=== PATIENT | female | born 1965 | race African-American/Black ===

== ENCOUNTER 2016-05-30 09:24 | Emergency (ER) | payer OTHER ==
[~2016-05-30] VITALS: Ht 154.9 cm; Wt 89.2 kg
[~2016-05-30 09:24] MED LIST: AMBIEN10 MG PO; BUPRENORPHIN-N1 EACH SL; CIPRO500 MG PO; EFFEXOR XR75 MG PO; FLAGYL500 MG PO; HYDRALAZINE HCL25 MG PO; LAMICTAL25 MG PO; LAMOTRIGINE100 MG PO; LATUDA120 MG PO; LATUDA80 MG PO; MINIPRESS1 MG PO; MINIPRESS5 MG PO; PERCOCET 5/31 TABLET PO; PRAZOSIN HCL5 MG PO; QUETIAPINE FUM300 MG PO; RISPERDAL4 MG PO; SEROQUEL100 MG PO; SUBOXONE 8 MG-1 EAC2 SL; TOPIRAMATE100 MG PO; TOPROL XL100 MG PO; ZOLPIDEM TARTRA10 MG PO; ZOLPIDEM TARTRAT5 MG PO; ZUBSOLV 5.7-1.1 EACH SL
[2016-05-30] MEDS ORDERED: NAPROSYN500 MG PO (13:38)
[2016-05-30 13:44] VITALS: BP 142/96
== END 2016-05-30 13:44 | disposition home or self-care (01) ==
LOC: EME 09:24
DX: K59.00 Constipation, unspecified (principal); K57.90 Diverticulosis of intestine, part unspecified, without perforation or abscess without bleeding; J45.909 Unspecified asthma, uncomplicated; I10 Essential (primary) hypertension; F17.200 Nicotine dependence, unspecified, uncomplicated
CPT/HCPCS: 74020; 74176; 81003; 99281; 99284; J1885

== ENCOUNTER → 2016-08-24 | Outpatient (CLI) | payer OTHER ==
[~2016-08-24] MED LIST changes: +NAPROSYN500 MG PO
== END | disposition home or self-care (01) ==
LOC: CDC 11:44
DX: R94.31 Abnormal electrocardiogram [ECG] [EKG] (principal); G56.02 Carpal tunnel syndrome, left upper limb; M79.642 Pain in left hand; M65.312 Trigger thumb, left thumb; M65.322 Trigger finger, left index finger; M65.332 Trigger finger, left middle finger; M65.342 Trigger finger, left ring finger
CPT/HCPCS: 93000

== ENCOUNTER 2016-12-13 06:22 | Emergency (ER) | payer OTHER ==
[~2016-12-13] VITALS: Ht 154.9 cm; Wt 95.7 kg
[2016-12-13] MEDS ORDERED: PREDNISONE50 MG PO (07:58)
[2016-12-13 08:27] VITALS: BP 119/80
== END 2016-12-13 08:28 | disposition home or self-care (01) ==
LOC: EME 06:22
DX: M54.16 Radiculopathy, lumbar region (principal); I10 Essential (primary) hypertension; J45.909 Unspecified asthma, uncomplicated; F32.9 Major depressive disorder, single episode, unspecified; Z88.0 Allergy status to penicillin
CPT/HCPCS: 99281; 99284

== ENCOUNTER 2017-10-08 02:29 | Emergency (ER) | payer OTHER ==
[~2017-10-08] VITALS: Ht 167.6 cm; Wt 89.4 kg
[~2017-10-08 02:29] MED LIST changes: +PREDNISONE50 MG PO
[2017-10-08 03:21] LABS: BASOPHIL (%) 0.2 % (0-1); EOSINOPHIL (%) 0 % (0-5); HEMATOCRIT 39.2 % (36.0-46.0); HEMOGLOBIN 12.8 G/DL (11.9-15.5); IMMATURE GRANULOCYTE (%) 0.8 % (0.0-0.7); LYMPHOCYTE (%) 6.6 % (15-42); LYMPHOCYTE COUNT 1.1 K/uL (1.0-2.8); MCH 22.5 PG (29.0-34.0); MCHC 32.7 G/DL (30.0-36.0); MCV 68.9 FL (83-99); MONOCYTE (%) 2.3 % (3-12); MONOCYTE COUNT 0.4 K/uL (0-0.8); NEUTROPHIL (%) 90.1 % (45-76); NEUTROPHIL COUNT 15.4 K/uL (1.8-6.4); PLATELET COUNT 324 K/uL (156-360); RBC DIS.WIDTH-CV 17.1 % (11.8-14.6); RED BLOOD COUNT 5.69 M/uL (3.80-5.20); WHITE BLOOD COUNT 17.1 K/uL (4.1-10.2)
[2017-10-08 03:25] LABS: ALBUMIN 4.7 g/dL (3.2-4.8); CHLORIDE 109 mEq/L (99-109); POTASSIUM 3.8 mEq/L (3.7-5.4); SODIUM 144 mEq/L (136-147)
[2017-10-08 03:28] LABS: GLUCOSE 149 mg/dL (70-99); TOTAL PROTEIN 7.8 g/dL (6.4-8.3)
[2017-10-08 03:30] LABS: TOTAL BILIRUBIN 0.5 mg/dL (0.0-1.0)
[2017-10-08 03:31] LABS: ALKALINE PHOSPHATASE 100 IU/L (3-129); GFR ESTIMATE (CALCULATED) > 59 mL/min/
[2017-10-08 03:32] LABS: UREA NITROGEN (BUN) 17 mg/dL (9-23)
[2017-10-08 03:33] LABS: AST (GOT) 14 IU/L (2-34)
[2017-10-08 03:34] LABS: ALT (GPT) 18 IU/L (3-49)
[2017-10-08 03:35] LABS: CREATINE KINASE 136 IU/L (1-294); LIPASE 7 U/L (1.0-51.0)
[2017-10-08 03:37] LABS: TROP-I INTERPRETATION NEGATIVE; TROPONIN-I < 0.01 ng/mL (0.0-0.30)
[2017-10-08 06:10] LABS: TROP-I INTERPRETATION NEGATIVE; TROPONIN-I < 0.01 ng/mL (0.0-0.30)
[2017-10-08] MEDS ORDERED: PANTOPRAZOLE SO40 MG PO (06:51)
[2017-10-08] MEDS ORDERED: CARAFATE100 MG/ML PO (06:51)
[2017-10-08 06:55] VITALS: BP 169/101
[2017-10-09] MEDS ORDERED: SEROQUEL400 MG PO (18:24)
== END 2017-10-08 06:55 | disposition home or self-care (01) ==
LOC: EME → EDBD 02:29 → EME 02:29
PROVIDERS: Emergency Medicine
DX: R10.13 Epigastric pain (principal); I10 Essential (primary) hypertension; J45.909 Unspecified asthma, uncomplicated; F32.9 Major depressive disorder, single episode, unspecified; F17.200 Nicotine dependence, unspecified, uncomplicated; F43.10 Post-traumatic stress disorder, unspecified; Z88.0 Allergy status to penicillin
CPT/HCPCS: 71045; 74177; 80053; 82550; 83690; 84484; 85025; 93005; 99281; 99284; J0780; J1630; J2405; J3010

== ENCOUNTER 2017-10-09 13:38 | Inpatient (IN) | payer OTHER ==
[~2017-10-09] VITALS: Ht 154.9 cm; Wt 83.0 kg
[~2017-10-09 13:38] MED LIST changes: +CARAFATE100 MG/ML PO; +PANTOPRAZOLE SO40 MG PO
[2017-10-09 15:11] LABS: BILIRUBIN NEGATIVE; BLOOD NEGATIVE; COLOR YELLOW ((YELLOW)); GLUCOSE (STRIP) NEGATIVE; KETONES 5; LEUKOCYTES TRACE; NITRITE NEGATIVE; PROTEIN (STRIP) 100; SPECIFIC GRAVITY 1.032 (1.000-1.030); UROBILINOGEN 0.2 MG/DL (0.2-1.0)
[2017-10-09 15:12] LABS: APPEARANCE SL.HAZY ((CLEAR))
[2017-10-09 15:15] LABS: BACTERIA RARE /HPF; EPITHELIAL CELLS 1+ /HPF; MUCUS 1+ /LPF; RED BLOOD CELLS 0-5 /HPF (0-5)
[2017-10-09 15:21] LABS: AMPHETAMINE NEGATIVE (500 ng/mL); BARBITURATES NEGATIVE (200 ng/mL); BENZODIAZEPINES PRESUMPTIVE POSITIVE (150 ng/mL); BUPRENORPHINE NEGATIVE (10 ng/mL); COCAINE NEGATIVE (150 ng/mL); METHADONE NEGATIVE (200 ng/mL); METHAMPHETAMINE NEGATIVE (500 ng/mL); OPIATES (MORPHINE) NEGATIVE (100 ng/mL); OXYCODONE NEGATIVE (100 ng/mL); PHENCYCLIDINE PRESUMPTIVE POSITIVE (25 ng/mL); PROPOXYPHENE NEGATIVE (300 ng/mL); THC CANNABINOIDS PRESUMPTIVE POSITIVE (50 ng/mL); TRICYCLIC ANTIDEPRESSANTS PRESUMPTIVE POSITIVE (300 ng/mL)
[2017-10-09 15:42] LABS: ALBUMIN 4.9 g/dL (3.2-4.8); CHLORIDE 104 mEq/L (99-109)
[2017-10-09 15:43] LABS: POTASSIUM 3.6 mEq/L (3.7-5.4); SODIUM 138 mEq/L (136-147)
[2017-10-09 15:45] LABS: GLUCOSE 115 mg/dL (70-99); TOTAL PROTEIN 8.1 g/dL (6.4-8.3)
[2017-10-09 15:48] LABS: ALKALINE PHOSPHATASE 95 IU/L (3-129); HEMATOCRIT 40.3 % (36.0-46.0); HEMOGLOBIN 13.3 G/DL (11.9-15.5); MCH 22.6 PG (29.0-34.0); MCV 68.4 FL (83-99); RBC DIS.WIDTH-CV 17.6 % (11.8-14.6); RBC DIS.WIDTH-SD 39.3 % (39-53); RED BLOOD COUNT 5.89 M/uL (3.80-5.20); SERUM ETHYL ALCOHOL < 10 mg/dL; WHITE BLOOD COUNT 18.3 K/uL (4.1-10.2)
[2017-10-09 15:49] LABS: CREATININE 0.9 mg/dL (0.6-1.3); GFR ESTIMATE (CALCULATED) > 59 mL/min/
[2017-10-09 15:50] LABS: AST (GOT) 17 IU/L (2-34); UREA NITROGEN (BUN) 25 mg/dL (9-23)
[2017-10-09 15:51] LABS: ALT (GPT) 18 IU/L (3-49)
[2017-10-09 15:56] LABS: BENZODIAZEPINES, URINE SCREEN Negative (200 ng/mL)
[2017-10-09 15:57] LABS: QUANTITATIVE HCG < 4.0 MIU/ML
[2017-10-09 15:58] LABS: TOTAL BILIRUBIN 0.7 mg/dL (0.0-1.0)
[2017-10-09 16:35] LABS: PLAT.SUFFICIENCY ADEQUATE; PLATELET COUNT 318 K/uL (156-360)
[2017-10-09 18:15] VITALS: BP 187/112
[2017-10-09] MEDS ORDERED: SEROQUEL400 MG PO (18:24)
[2017-10-09 18:27] VITALS: BP 187/112
[2017-10-10 03:23] VITALS: BP 134/75
[2017-10-10 08:00] VITALS: BP 152/93
[2017-10-10 14:01] LABS: HEMOGLOBIN 13.8 G/DL (11.9-15.5); MCHC 32.1 G/DL (30.0-36.0); MCV 68.6 FL (83-99); PLATELET COUNT 329 K/uL (156-360); RBC DIS.WIDTH-CV 17.8 % (11.8-14.6); RBC DIS.WIDTH-SD 39.4 % (39-53); RED BLOOD COUNT 6.27 M/uL (3.80-5.20); WHITE BLOOD COUNT 14.7 K/uL (4.1-10.2)
[2017-10-10 14:16] LABS: ALBUMIN 4.6 G/DL (3.2-4.8); ALKALINE PHOSPHATASE 91 IU/L (3-129); ALT (GPT) 19 IU/L (3-49); AST (GOT) 27 IU/L (2-34); CHLORIDE 103 MEQ/L (99-109); CREATININE 0.9 MG/DL (0.6-1.3); DIRECT BILIRUBIN 0.2 mg/dL (0.0-0.3); GFR ESTIMATE (CALCULATED) > 59 mL/min/; GLUCOSE 95 mg/dL (70-99); LIPASE 14 U/L (1.0-51.0); POTASSIUM 3.9 MEQ/L (3.7-5.4); SODIUM 138 MEQ/L (136-147); TOTAL BILIRUBIN 0.8 MG/DL (0.0-1.0); TOTAL PROTEIN 7.4 G/DL (6.4-8.3); UREA NITROGEN (BUN) 23 mg/dL (9-23)
[2017-10-10 16:56] VITALS: BP 190/99
[2017-10-11 01:42] VITALS: BP 112/55
[2017-10-11 07:28] LABS: HEMATOCRIT 41.6 % (36.0-46.0); HEMOGLOBIN 13.2 G/DL (11.9-15.5); MCHC 31.7 G/DL (30.0-36.0); MCV 69.3 FL (83-99); PLATELET COUNT 310 K/uL (156-360); RBC DIS.WIDTH-CV 17.9 % (11.8-14.6); RBC DIS.WIDTH-SD 39.8 % (39-53); WHITE BLOOD COUNT 11.7 K/uL (4.1-10.2)
[2017-10-11 07:42] LABS: CHLORIDE 103 MEQ/L (99-109); GFR ESTIMATE (CALCULATED) > 59 mL/min/; GLUCOSE 108 mg/dL (70-99); POTASSIUM 3.9 MEQ/L (3.7-5.4); SODIUM 138 MEQ/L (136-147); UREA NITROGEN (BUN) 29 mg/dL (9-23)
[2017-10-11 08:32] VITALS: BP 118/82
[2017-10-11] MEDS ORDERED: APRESOLINE10 MG PO (15:05)
== END 2017-10-11 16:04 | disposition home or self-care (01) | DRG 885 ==
LOC: EME 13:38 → 1WEST 15:41 → EDOF 15:41 → ENRESERV 18:06 → 1WEST 18:07
PROVIDERS: Emergency Medicine; Physician Assistant
DX: F31.9 Bipolar disorder, unspecified (principal); R45.851 Suicidal ideations; F11.20 Opioid dependence, uncomplicated; F15.90 Other stimulant use, unspecified, uncomplicated; F12.90 Cannabis use, unspecified, uncomplicated; D72.829 Elevated white blood cell count, unspecified; E87.6 Hypokalemia; R10.11 Right upper quadrant pain; K20.9 Esophagitis, unspecified; I10 Essential (primary) hypertension; F43.10 Post-traumatic stress disorder, unspecified; F17.210 Nicotine dependence, cigarettes, uncomplicated; Z62.810 Personal history of physical and sexual abuse in childhood; Z87.11 Personal history of peptic ulcer disease
CPT/HCPCS: 76705; 80048; 80053; 80076; 81003; 82272; 83690; 84702; 84999; 85027; 90839; 99281; 99284; G0480; J2250; J2405; J3010; Q0177

== ENCOUNTER → 2017-10-11 | Outpatient (CLI) | payer OTHER ==
[~2017-10-11] MED LIST changes: +APRESOLINE10 MG PO; +COLACE100 MG PO; +MIRALAX255 GM PO; +PEPCID20 MG PO; +SEROQUEL400 MG PO
== END | disposition home or self-care (01) ==
LOC: AMB 16:37
PROC: 0DB68ZX Excision of Stomach, Via Natural or Artificial Opening Endoscopic, Diagnostic (ICD-10-PCS; principal; 2017-10-11)
DX: K25.9 Gastric ulcer, unspecified as acute or chronic, without hemorrhage or perforation (principal); Z87.11 Personal history of peptic ulcer disease; F31.9 Bipolar disorder, unspecified; F19.10 Other psychoactive substance abuse, uncomplicated
CPT/HCPCS: 88305; 88342 TC; J0360

== ENCOUNTER 2017-10-13 04:31 | Emergency (ER) | payer OTHER ==
[~2017-10-13] VITALS: Ht 157.5 cm; Wt 84.9 kg
[~2017-10-13 04:31] MED LIST changes: -COLACE100 MG PO; -MIRALAX255 GM PO; -PEPCID20 MG PO
[2017-10-13 06:04] LABS: ALBUMIN 4.7 g/dL (3.2-4.8); CHLORIDE 102 mEq/L (99-109); HEMATOCRIT 39.2 % (36.0-46.0); MCH 22.6 PG (29.0-34.0); MCHC 33.2 G/DL (30.0-36.0); MCV 68.3 FL (83-99); POTASSIUM 3.3 mEq/L (3.7-5.4); RBC DIS.WIDTH-CV 17.1 % (11.8-14.6); RBC DIS.WIDTH-SD 38.8 % (39-53); RED BLOOD COUNT 5.74 M/uL (3.80-5.20); SODIUM 135 mEq/L (136-147); WHITE BLOOD COUNT 10.8 K/uL (4.1-10.2)
[2017-10-13 06:07] LABS: GLUCOSE 108 mg/dL (70-99); TOTAL PROTEIN 7.6 g/dL (6.4-8.3)
[2017-10-13 06:09] LABS: TOTAL BILIRUBIN 0.7 mg/dL (0.0-1.0)
[2017-10-13 06:10] LABS: ALKALINE PHOSPHATASE 86 IU/L (3-129); CREATININE 1.1 mg/dL (0.6-1.3); GFR ESTIMATE (CALCULATED) > 59 mL/min/
[2017-10-13 06:11] LABS: UREA NITROGEN (BUN) 13 mg/dL (9-23)
[2017-10-13 06:13] LABS: ALT (GPT) 48 IU/L (3-49); AST (GOT) 31 IU/L (2-34)
[2017-10-13 06:14] LABS: LIPASE 16 U/L (1.0-51.0)
[2017-10-13 06:45] LABS: PLAT.SUFFICIENCY ADEQUATE; PLATELET COUNT 308 K/uL (156-360)
[2017-10-13 07:33] LABS: APPEARANCE CLEAR ((CLEAR)); BILIRUBIN NEGATIVE; BLOOD NEGATIVE; COLOR YELLOW ((YELLOW)); GLUCOSE (STRIP) NEGATIVE; KETONES NEGATIVE; LEUKOCYTES NEGATIVE; NITRITE NEGATIVE; PROTEIN (STRIP) NEGATIVE; SPECIFIC GRAVITY 1.014 (1.000-1.030); UCUL ADDED? NO; UROBILINOGEN 0.2 MG/DL (0.2-1.0)
[2017-10-13] MEDS ORDERED: COLACE100 MG PO (09:28)
[2017-10-13] MEDS ORDERED: MIRALAX255 GM PO (09:28)
[2017-10-13 09:46] VITALS: BP 163/107
== END 2017-10-13 10:01 | disposition home or self-care (01) ==
LOC: EME → EDBD 04:31 → EME 10:01
PROVIDERS: Emergency Medicine
DX: R10.30 Lower abdominal pain, unspecified (principal); K59.00 Constipation, unspecified; D72.829 Elevated white blood cell count, unspecified; I10 Essential (primary) hypertension; J45.909 Unspecified asthma, uncomplicated; F17.200 Nicotine dependence, unspecified, uncomplicated; F43.10 Post-traumatic stress disorder, unspecified; F31.9 Bipolar disorder, unspecified; Z87.19 Personal history of other diseases of the digestive system; Z88.0 Allergy status to penicillin
CPT/HCPCS: 74022; 80053; 81003; 81025; 83690; 85027; 99281; 99285; J7030

== ENCOUNTER 2017-10-16 05:25 | Emergency (ER) | payer OTHER ==
[~2017-10-16] VITALS: Ht 157.5 cm; Wt 86.3 kg
[~2017-10-16 05:25] MED LIST changes: +COLACE100 MG PO; +MIRALAX255 GM PO
[2017-10-16 07:23] LABS: HEMATOCRIT 38.6 % (36.0-46.0); HEMOGLOBIN 12.7 G/DL (11.9-15.5); MCH 22.8 PG (29.0-34.0); MCHC 32.9 G/DL (30.0-36.0); MCV 69.4 FL (83-99); RBC DIS.WIDTH-SD 40.5 % (39-53); RED BLOOD COUNT 5.56 M/uL (3.80-5.20); WHITE BLOOD COUNT 13.2 K/uL (4.1-10.2)
[2017-10-16 08:03] LABS: PLAT.SUFFICIENCY INCREASED; PLATELET COUNT 325 K/uL (156-360)
[2017-10-16 08:17] LABS: ALBUMIN 4.5 G/DL (3.2-4.8); ALKALINE PHOSPHATASE 79 IU/L (3-129); ALT (GPT) 31 IU/L (3-49); AST (GOT) 19 IU/L (2-34); CHLORIDE 105 MEQ/L (99-109); GFR ESTIMATE (CALCULATED) > 59 mL/min/; GLUCOSE 113 mg/dL (70-99); LIPASE 22 U/L (1.0-51.0); POTASSIUM 3.3 MEQ/L (3.7-5.4); SODIUM 141 MEQ/L (136-147); TOTAL PROTEIN 7.2 G/DL (6.4-8.3)
[2017-10-16 08:23] LABS: TOTAL BILIRUBIN 0.4 MG/DL (0.0-1.0); UREA NITROGEN (BUN) 22 mg/dL (9-23)
[2017-10-16 08:55] LABS: QUANTITATIVE HCG < 4.0 MIU/ML
[2017-10-16] MEDS ORDERED: PEPCID20 MG PO (09:58)
[2017-10-16 10:25] VITALS: BP 93/73
== END 2017-10-16 10:25 | disposition home or self-care (01) ==
LOC: EME → EDBD 05:25 → EME 10:25
DX: K29.70 Gastritis, unspecified, without bleeding (principal); K42.9 Umbilical hernia without obstruction or gangrene; K44.9 Diaphragmatic hernia without obstruction or gangrene; I10 Essential (primary) hypertension; J45.909 Unspecified asthma, uncomplicated; F43.10 Post-traumatic stress disorder, unspecified; F31.9 Bipolar disorder, unspecified; F17.200 Nicotine dependence, unspecified, uncomplicated; Z87.19 Personal history of other diseases of the digestive system; Z88.0 Allergy status to penicillin
CPT/HCPCS: 74176; 80053; 81003; 83690; 84702; 85027; 99281; 99285; J2405; J3010; J7030

== ENCOUNTER 2017-12-05 23:07 | Inpatient (IN) | payer OTHER ==
[~2017-12-05] VITALS: Ht 154.9 cm; Wt 81.2 kg
[~2017-12-05 23:07] MED LIST changes: +PEPCID20 MG PO
[2017-12-06 00:50] LABS: HEMATOCRIT 36.5 % (36.0-46.0); HEMOGLOBIN 11.9 G/DL (11.9-15.5); MCH 22.8 PG (29.0-34.0); MCHC 32.6 G/DL (30.0-36.0); MCV 70.1 FL (83-99); PLATELET COUNT 396 K/uL (156-360); RBC DIS.WIDTH-CV 17.2 % (11.8-14.6); RBC DIS.WIDTH-SD 42.3 % (39-53); RED BLOOD COUNT 5.21 M/uL (3.80-5.20); WHITE BLOOD COUNT 10.3 K/uL (4.1-10.2)
[2017-12-06 00:56] LABS: CHLORIDE 104 mEq/L (99-109); POTASSIUM 3.3 mEq/L (3.7-5.4); SODIUM 138 mEq/L (136-147)
[2017-12-06 00:58] LABS: GLUCOSE 110 mg/dL (70-99)
[2017-12-06 01:01] LABS: CREATININE 0.9 mg/dL (0.6-1.3); GFR ESTIMATE (CALCULATED) > 59 mL/min/; SERUM ETHYL ALCOHOL < 10 mg/dL
[2017-12-06 01:02] LABS: UREA NITROGEN (BUN) 13 mg/dL (9-23)
[2017-12-06 02:19] LABS: AMPHETAMINE NEGATIVE (500 ng/mL); BARBITURATES NEGATIVE (200 ng/mL); BENZODIAZEPINES NEGATIVE (150 ng/mL); BUPRENORPHINE NEGATIVE (10 ng/mL); COCAINE PRESUMPTIVE POSITIVE (150 ng/mL); METHADONE NEGATIVE (200 ng/mL); METHAMPHETAMINE NEGATIVE (500 ng/mL); OPIATES (MORPHINE) NEGATIVE (100 ng/mL); OXYCODONE NEGATIVE (100 ng/mL); PHENCYCLIDINE NEGATIVE (25 ng/mL); PROPOXYPHENE NEGATIVE (300 ng/mL); THC CANNABINOIDS NEGATIVE (50 ng/mL); TRICYCLIC ANTIDEPRESSANTS NEGATIVE (300 ng/mL)
[2017-12-06 03:34] VITALS: BP 109/57
[2017-12-06 07:24] VITALS: BP 114/62
[2017-12-06] MEDS ORDERED: TRIAMTERENE-HC1 EAC1 PO (09:47)
[2017-12-06 16:18] VITALS: BP 105/58
[2017-12-07 07:39] VITALS: BP 101/59
[2017-12-07 15:51] VITALS: BP 111/63
[2017-12-08 09:01] VITALS: BP 112/60
[2017-12-08 14:51] VITALS: BP 139/82
[2017-12-09 07:27] VITALS: BP 130/68
[2017-12-09 15:06] VITALS: BP 143/76
[2017-12-10 07:59] VITALS: BP 111/59
[2017-12-10] MEDS ORDERED: MINIPRESS5 MG PO (08:31)
[2017-12-10] MEDS ORDERED: EFFEXOR XR150 MG PO (08:31)
[2017-12-10] MEDS ORDERED: LAMOTRIGINE100 MG PO (08:31)
[2017-12-10] MEDS ORDERED: SEROQUEL400 MG PO (08:33)
[2017-12-10] MEDS ORDERED: QUETIAPINE FUMA25 MG PO (08:33)
[2017-12-10] MEDS ORDERED: ZOLPIDEM TARTRAT5 MG PO (08:33)
[2017-12-10] MEDS ORDERED: ERYTHROMYC1 APPLICAT RIGHT EYE (08:34)
== END 2017-12-10 09:52 | disposition home or self-care (01) | DRG 897 ==
LOC: EME 23:07 → 1WEST 12-06 01:29 → EDOF 12-06 01:29 → ENRESERV 12-06 03:03 → 1WEST 12-06 03:25
PROVIDERS: Emergency Medicine
DX: F11.23 Opioid dependence with withdrawal (principal); S01.81XA Laceration without foreign body of other part of head, initial encounter; W18.30XA Fall on same level, unspecified, initial encounter; F43.10 Post-traumatic stress disorder, unspecified; I10 Essential (primary) hypertension; F17.210 Nicotine dependence, cigarettes, uncomplicated; F14.20 Cocaine dependence, uncomplicated; F16.10 Hallucinogen abuse, uncomplicated; E66.9 Obesity, unspecified; Z68.35 Body mass index [BMI] 35.0-35.9, adult; W01.0XXA Fall on same level from slipping, tripping and stumbling without subsequent striking against object, initial encounter; Y92.002 Bathroom of unspecified non-institutional (private) residence as the place of occurrence of the external cause; J45.909 Unspecified asthma, uncomplicated; H11.31 Conjunctival hemorrhage, right eye
CPT/HCPCS: 70450; 80048; 84999; 85027; 90839; 97150 GO; 97165 GO; G0480; J0572; J0574